=== PATIENT | male | born 2000 | race Caucasian/White ===

== ENCOUNTER 2020-04-10 12:19 | Emergency (ER) | payer OTHER ==
[~2020-04-10] VITALS: Ht 188 cm; Wt 97.1 kg
[2020-04-10] MEDS ORDERED: AUGMENTIN 875 MG TAB PO ONE (14:00)
[2020-04-10] MEDS ORDERED: AUGM875T28 PO (14:24)
[2020-04-10 14:33] VITALS: BP 167/85
== END 2020-04-10 14:35 | disposition home or self-care (01) ==
LOC: M ED 12:19
DX: S61.451A Open bite of right hand, initial encounter (principal); W54.0XXA Bitten by dog, initial encounter; Y92.009 Unspecified place in unspecified non-institutional (private) residence as the place of occurrence of the external cause; Y93.89 Activity, other specified; Y99.8 Other external cause status